=== PATIENT | female | born 1995 | race Two or more races ===

== ENCOUNTER 2024-12-02 00:12 | Emergency (ER) | payer OTHER ==
[~2024-12-02] VITALS: Ht 162.6 cm; Wt 89.5 kg
[2024-12-02 00:21] VITALS: BP 135/84; PULSE 84; RESP 18; TEMP 98.3; O2SAT 100
== END 2024-12-02 00:31 | disposition left against medical advice (07) ==
LOC: ER 00:12
DX: R10.10 Upper abdominal pain, unspecified (principal); Z53.21 Procedure and treatment not carried out due to patient leaving prior to being seen by health care provider